=== PATIENT | female | born 1975 | race Caucasian/White ===

== ENCOUNTER 2020-06-23 13:00 | Outpatient (CLI) | payer OTHER, SELFPAY | END 2020-06-23 13:01 | disposition home or self-care (01) | LOC: ANHAUDIO 13:02 | PROVIDERS: Visit Provider Otolaryngology | DX: H69.81 Other specified disorders of Eustachian tube, right ear (principal); H91.91 Unspecified hearing loss, right ear | CPT/HCPCS: 92552; 92556; 92567 ==